=== PATIENT | male | born 1985 | race Caucasian/White ===

== ENCOUNTER → 2016-08-05 | Outpatient (CLI) | payer OTHER ==
[~2016-08-05] MED LIST: ASPI81 PO; CIPR-278 PO; SENN-30 PO
[2016-08-05 08:24] VITALS: BP 133/78
== END | disposition home or self-care (01) ==
LOC: HBOWC 07:54
PROVIDERS: ATTEND Emergency Medicine
DX: L89.152 Pressure ulcer of sacral region, stage 2 (principal); L89.892 Pressure ulcer of other site, stage 2; G82.21 Paraplegia, complete
CPT/HCPCS: 97597

== ENCOUNTER → 2016-08-19 | Outpatient (CLI) | payer OTHER ==
[2016-08-19 08:21] VITALS: BP 122/64
== END | disposition home or self-care (01) ==
LOC: HBOWC 08:10
PROVIDERS: ATTEND Emergency Medicine Undersea and Hyperbaric Medicine
DX: L89.152 Pressure ulcer of sacral region, stage 2 (principal); L97.521 Non-pressure chronic ulcer of other part of left foot limited to breakdown of skin; L97.511 Non-pressure chronic ulcer of other part of right foot limited to breakdown of skin; G82.20 Paraplegia, unspecified; I87.8 Other specified disorders of veins; G90.9 Disorder of the autonomic nervous system, unspecified
CPT/HCPCS: 97597

== ENCOUNTER → 2016-09-02 | Outpatient (CLI) | payer OTHER ==
[2016-09-02 11:27] VITALS: BP 105/44
== END | disposition home or self-care (01) ==
LOC: HBOWC 08:44
PROVIDERS: ATTEND Emergency Medicine
DX: L89.892 Pressure ulcer of other site, stage 2 (principal); L89.152 Pressure ulcer of sacral region, stage 2; I87.2 Venous insufficiency (chronic) (peripheral); G82.20 Paraplegia, unspecified
CPT/HCPCS: 97597

== ENCOUNTER → 2016-09-16 | Outpatient (CLI) | payer OTHER ==
[2016-09-16 09:47] VITALS: BP 100/51
== END | disposition home or self-care (01) ==
LOC: HBOWC 08:46
PROVIDERS: ATTEND Emergency Medicine Undersea and Hyperbaric Medicine
DX: L89.892 Pressure ulcer of other site, stage 2 (principal); I87.2 Venous insufficiency (chronic) (peripheral); G90.9 Disorder of the autonomic nervous system, unspecified; G82.20 Paraplegia, unspecified

== ENCOUNTER → 2016-09-30 | Outpatient (CLI) | payer OTHER ==
[~2016-09-30] MED LIST changes: -CIPR-278 PO
[2016-09-30 10:44] VITALS: BP 92/56
== END | disposition home or self-care (01) ==
LOC: HBOWC 09:16
PROVIDERS: ATTEND Emergency Medicine
DX: L89.892 Pressure ulcer of other site, stage 2 (principal); G82.20 Paraplegia, unspecified; I87.8 Other specified disorders of veins; G90.9 Disorder of the autonomic nervous system, unspecified

== ENCOUNTER → 2016-10-14 | Outpatient (CLI) | payer OTHER ==
[2016-10-14 10:45] VITALS: BP 117/61
== END | disposition home or self-care (01) ==
LOC: HBOWC 08:25
PROVIDERS: ATTEND Emergency Medicine Undersea and Hyperbaric Medicine
DX: L89.892 Pressure ulcer of other site, stage 2 (principal); G82.20 Paraplegia, unspecified; I87.8 Other specified disorders of veins; G90.9 Disorder of the autonomic nervous system, unspecified